=== PATIENT | male | born 1935 | race Caucasian/White ===

== ENCOUNTER 2020-11-03 17:57 | Emergency (ER) | payer SELFPAY ==
[~2020-11-03] VITALS: Ht 188 cm; Wt 130.8 kg
[2020-11-03 17:58] VITALS: BP 190/86
== END 2020-11-03 18:45 | disposition left against medical advice (07) ==
LOC: M ED 17:57
DX: Z53.21 Procedure and treatment not carried out due to patient leaving prior to being seen by health care provider (principal)

== ENCOUNTER → 2021-12-15 | Outpatient (REF) | payer OTHER | LOC: M LAB REF 16:28 | PROVIDERS: ATTEND Surgery | DX: L72.0 Epidermal cyst (principal) ==

== ENCOUNTER → 2022-09-27 | Outpatient (REF) | payer OTHER | LOC: M SFHCDERM 17:46 | PROVIDERS: ATTEND Nurse Practitioner Family | DX: L57.0 Actinic keratosis (principal) ==

== ENCOUNTER 2023-03-08 07:04 | Emergency (ER) | payer MEDICARE, OTHER ==
[~2023-03-08] VITALS: Ht 188 cm; Wt 116.0 kg
[2023-03-08] MEDS ORDERED: AMLO1TAB25 PO (07:19)
[2023-03-08] MEDS ORDERED: ALBU2.5V10 INH (07:19)
[2023-03-08] MEDS ORDERED: BACL10TA8 PO (07:19)
[2023-03-08] MEDS ORDERED: CARV25TA PO (07:19)
[2023-03-08] MEDS ORDERED: METF500T13 PO (07:20)
[2023-03-08] MEDS ORDERED: HYDR-3490 PO (07:20)
[2023-03-08] MEDS ORDERED: CARVedilol 12.5 MG TAB PO ONE (08:30)
[2023-03-08 08:46] VITALS: BP 148/76
[2023-03-08 08:54] LABS: BASO % 0.3 % (0.0-1.0); EOS # 0.2 10^3/uL (0.0-0.5); EOS % 1.9 % (0.0-3.0); HEMATOCRIT 45.1 % (42.0-52.0); LYMPH # 1.8 10^3/uL (1.5-5.0); LYMPH % 18.4 % (24.0-44.0); MEAN CORPUSCULAR HEMOGLOBIN 30.9 pg (27.0-33.0); MEAN CORPUSCULAR HGB CONC 33.3 g/dl (32.0-36.5); MONO % 10.6 % (2.0-8.0); NEUTROPHILS # 6.5 10^3/uL (1.5-8.5); NEUTROPHILS % 68.6 % (36.0-66.0); PLATELET COUNT, AUTOMATED 180 10^3/uL (150-450); RED BLOOD COUNT 4.85 10^6/uL (4.30-6.10); WHITE BLOOD COUNT 9.5 10^3/uL (4.0-10.0)
[2023-03-08 09:21] LABS: BLOOD UREA NITROGEN 20 MG/DL (9-23); CALCIUM LEVEL 8.9 MG/DL (8.3-10.6); CARBON DIOXIDE LEVEL 28 MMOL/L (20-31); CHLORIDE LEVEL 106 MMOL/L (98-107); CREATININE FOR GFR 0.96 MG/DL (0.70-1.30); GLOMERULAR FILTRATION RATE > 60.0 (>35); GLUCOSE, FASTING 146 MG/DL (74-106); POTASSIUM SERUM 3.7 MMOL/L (3.5-5.1); SODIUM LEVEL 142 MMOL/L (136-145)
[2023-03-08] MEDS ORDERED: BACITRACIN OINTMENT 30GM TUBE TOP PRN (10:40)
[2023-03-08 11:03] VITALS: BP 153/74; TEMP 97.7; O2SAT 97
== END 2023-03-08 11:30 | disposition home or self-care (01) ==
LOC: M ED 07:04
DX: R04.0 Epistaxis (principal); I10 Essential (primary) hypertension; E11.9 Type 2 diabetes mellitus without complications; Z88.2 Allergy status to sulfonamides; Z88.8 Allergy status to other drugs, medicaments and biological substances; Z79.52 Long term (current) use of systemic steroids; Z79.4 Long term (current) use of insulin; Z79.811 Long term (current) use of aromatase inhibitors; Z79.899 Other long term (current) drug therapy

== ENCOUNTER → 2023-06-10 | Outpatient (CLI) | payer OTHER ==
[~2023-06-10] MED LIST: ALBU2.5V10 INH; AMLO1TAB25 PO; BACL10TA8 PO; CARV25TA PO; HYDR-3490 PO; METF500T13 PO
== END ==
LOC: M SOG 09:26
PROVIDERS: ATTEND Physician Assistant
DX: M19.031 Primary osteoarthritis, right wrist (principal); M11.231 Other chondrocalcinosis, right wrist

== ENCOUNTER 2023-08-01 07:18 | Day surgery (SDC) | payer OTHER, MEDICARE ==
[~2023-08-01] VITALS: Ht 188 cm; Wt 119.7 kg
[~2023-08-01 07:18] MED LIST changes: +ALLO100T PO; +BAYE81TA10 PO; +CHOL25TA9 PO; +EZET10TA21 PO; +FLON1SPR NARES; +GABA-284 PO; +LOSA100T46 PO; +MELO15TA28 PO; +OMEP-173 PO; +ROSU40TA4 PO; +SIMV-254 PO; +VENTAER INH
[2023-08-01] MEDS ORDERED: LIDOCAINE 1% SDV 5ML VIAL SC PRN (07:45)
[2023-08-01] MEDS: LR 1,000 ML IV SCH (08:30)
[2023-08-01] MEDS ORDERED: KETAMINE HCL 200MG/20ML VIAL As Ordered ONE (08:34)
[2023-08-01] MEDS ORDERED: LIDOCAINE 2% 100MG/5ML SDV (FOR ANES.) As Ordered ONE (08:34)
[2023-08-01] MEDS ORDERED: ONDANSETRON 4MG 2ML VIAL As Ordered ONE (08:34)
[2023-08-01] MEDS ORDERED: propofoL 200 MG/20 ML VIAL As Ordered ONE (08:35)
[2023-08-01] MEDS ORDERED: PHENYLephrine 500MCG 5ML (100MCG/ML) SYRINGE As Ordered ONE (09:32)
[2023-08-01] MEDS ORDERED: ePHEDrine SULFATE 25 MG/5 ML(5MG/ML) SYRINGE As Ordered ONE (09:32)
[2023-08-01] MEDS ORDERED: KETOROLAC 60MG 2ML VIAL As Ordered ONE (09:47)
[2023-08-01 10:10] VITALS: BP 143/67; TEMP 97.9; O2SAT 100
== END 2023-08-01 11:00 | disposition home or self-care (01) ==
LOC: M SDC 07:18
PROVIDERS: ATTEND Orthopaedic Surgery Hand Surgery
DX: G56.01 Carpal tunnel syndrome, right upper limb (principal); E11.9 Type 2 diabetes mellitus without complications; I10 Essential (primary) hypertension; E78.00 Pure hypercholesterolemia, unspecified; G47.30 Sleep apnea, unspecified; Z79.899 Other long term (current) drug therapy; Z79.82 Long term (current) use of aspirin; Z79.84 Long term (current) use of oral hypoglycemic drugs; Z88.8 Allergy status to other drugs, medicaments and biological substances; Z88.2 Allergy status to sulfonamides; Z87.891 Personal history of nicotine dependence
CPT/HCPCS: 29848; J0665; J1100; J1885; J2371; J2405

== ENCOUNTER → 2023-11-21 | Outpatient (REF) | payer OTHER, MEDICARE ==
[~2023-11-21] MED LIST changes: -ROSU40TA4 PO; +ROSU40TA63 PO
== END ==
LOC: M LAB REF 16:47
PROVIDERS: ATTEND Surgery
DX: D03.9 Melanoma in situ, unspecified (principal); L90.5 Scar conditions and fibrosis of skin